=== PATIENT | female | born 1945 | race Caucasian/White ===

== ENCOUNTER 2023-11-08 20:20 | Emergency (ER) | payer MEDICAID ==
[~2023-11-08] VITALS: Ht 147.3 cm; Wt 48.0 kg
[~2023-11-08 20:20] MED LIST: INSU100I28 SQ; METF-873 MT
[2023-11-08 21:05] VITALS: BP 113/75; RESP 16; TEMP 98.7; O2SAT 99
[2023-11-08 21:10] VITALS: PULSE 110
== END 2023-11-08 22:04 | disposition left against medical advice (07) ==
LOC: ER 20:20
DX: Z53.21 Procedure and treatment not carried out due to patient leaving prior to being seen by health care provider (principal)
CPT/HCPCS: 99281